=== PATIENT | female | born 1980 | race American Indian/Alaskan Native ===

== ENCOUNTER 2017-10-10 08:07 | Emergency (ER) | payer SELFPAY ==
[2017-10-10 08:33] VITALS: BP 149/89
[2017-10-10 09:03] LABS: Basophils % (Auto) 0.7 % (0.0-1.8); Eosinophils # (Auto) 0.2 K/mm3 (0.0-0.4); Eosinophils % (Auto) 2.5 % (0.0-4.3); Hemoglobin 7.7 gm/dl (10.1-14.3); Lymphocytes # (Auto) 2.1 K/mm3 (1.2-5.4); Lymphocytes % (Auto) 28.1 % (13.4-35.0); Mean Corpuscular HGB Conc 31 % (30-34); Monocytes # (Auto) 0.7 K/mm3 (0.0-0.8); Monocytes % (Auto) 9.4 % (0.0-7.3); Platelet Count 324 K/mm3 (140-440); Red Blood Count 4.72 M/mm3 (3.65-5.03)
[2017-10-10 09:06] LABS: Mean Corpuscular Hemoglobin 16 pg (28-32); Mean Corpuscular Volume 53 fl (79-97); Red Cell Distribution Width 22.7 % (13.2-15.2)
[2017-10-10 09:12] LABS: Bilirubin,Urine NEG (Negative); Blood,Urine NEG (Negative); Color,Urine Yellow (Yellow); HCG Qualitative,Urine Negative (Negative); Mucus,Urine FEW /HPF; Protein,Urine <15 mg/dL mg/dL (Negative); Urobilinogen,Urine < 2.0 mg/dL (<2.0)
[2017-10-10 09:42] LABS: Alanine Aminotransferase 23 units/L (7-56); Albumin 3.7 g/dL (3.9-5); BUN/Creatinine Ratio 7; Blood Urea Nitrogen 6 mg/dL (7-17); Calcium 6.7 mg/dL (8.4-10.2); Hemolysis Index 0; Lipase 22 units/L (13-60)
--- NOTE | 2017-10-10 10:47 | Emergency Department Report ---
Vomiting/Diarrhea - HPI Chief Complaint: Nausea/Vomiting/Diarrhea Stated Complaint: STOMACH VIRUS Time Seen by Provider: 10/10/17 10:10 Duration: 1 Day Severity: mild Nausea/Vomiting Severity: None Diarrhea Severity: Mild Pain Location: Generalized Pain Severity: None Symptoms: Yes Watery Diarrhea, Yes Able to Tolerate Fluids, Yes Family w/ Similar Symptoms, No Bloody diarrhea, No Fever, No Recent Untreated Water, No Recent use of Antibiotics, No Contacts w/ Similar Symptoms, No Rash, No Hematuria, No Recent URI Symptoms Other History: 37-year-old female with no prior medical history presents to ED complaining of watery loose stools since Monday night. Patient states that her daughter had a sleepover with children from her school and one of the children' s was sick. Patient states that her child and 2 other children had similar symptoms vomiting and diarrhea. She states that her symptoms began last night and mostly diarrhea. She denies nausea or vomiting. She states she's been inhibited changed to Gatorade and water but not as much food ED Review of Systems ROS: Stated complaint: STOMACH VIRUS Other details as noted in HPI Constitutional: denies: chills, fever Eyes: denies: eye pain, eye discharge, vision change ENT: denies: ear pain, throat pain Respiratory: denies: cough, shortness of breath, wheezing Cardiovascular: denies: chest pain, palpitations Endocrine: no symptoms reported Gastrointestinal: denies: abdominal pain, nausea, diarrhea Genitourinary: denies: urgency, dysuria, discharge Musculoskeletal: denies: back pain, joint swelling, arthralgia Skin: denies: rash, lesions Neurological: denies: headache, weakness, paresthesias Psychiatric: denies: anxiety, depression Hematological/Lymphatic: denies: easy bleeding, easy bruising ED Past Medical Hx - Past Medical History Previous Medical History?: Yes Additional medical history: VAGINAL DELIVERY X 2 - Surgical History Past Surgical History?: Yes Additional Surgical History: X 1 - Social History Smoking Status: Current Every Day Smoker Substance Use Type: Alcohol - Medications Home Medications: Home Medications Medication Instructions Recorded Confirmed Last Taken Type Acetaminophen/Diphenhydramine 1 each PO TID #30 tablet 10/10/17 Unknown Rx [Tylenol Pm Ex-Strength Caplet] Famotidine [Pepcid] 20 mg PO BID #20 tablet 05/22/18 Unknown Rx Vomiting Diarrhea Exam - Exam General: Vital signs noted. No distress. Alert and acting appropriately. HEENT: Yes Moist Mucous Membranes, No Pharyngeal Erythema, No Pharyngeal Exudates, No Rhinorrhea, No Conjuctival Injection, No Frontal Tenderness, No Maxillary Tenderness Neck: No Adenopathy, No Rigidity Lungs: Yes Clear Lung Sounds, Yes Good Air Exchange, No Wheezes, No Stridor, No Cough, No Nasal Flaring, No Retractions, No Use of Accessory Muscles Heart exam: Regular: Yes, Murmur: No, Tachycardia: No Abdomen: Tenderness: No, Peritoneal Signs: No, Distention: No, Hyperactive Bowel sounds: No Skin exam: Rash: No, Edema: No, Normal turgor: Yes Neurologic: Alert and oriented, no deficits. Musculoskeletal: Unremarkable. ED Course Vital Signs 10/10/17 08:28 Temperature 98.6 F Pulse Rate 104 H Respiratory 20 Rate Blood Pressure 149/89 O2 Sat by Pulse 100 Oximetry ED Medical Decision Making - Lab Data Result diagrams: 10/10/17 08:49 10/10/17 08:49 Laboratory Last Values WBC 7.5 K/mm3 (4.5-11.0) 10/10/17 08:49 RBC 4.72 M/mm3 (3.65-5.03) 10/10/17 08:49 Hgb 7.7 gm/dl (10.1-14.3) L 10/10/17 08:49 Hct 25.0 % (30.3-42.9) L 10/10/17 08:49 MCV 53 fl (79-97) L 10/10/17 08:49 MCH 16 pg (28-32) L 10/10/17 08:49 MCHC 31 % (30-34) 10/10/17 08:49 RDW 22.7 % (13.2-15.2) H 10/10/17 08:49 Plt Count 324 K/mm3 (140-440) 10/10/17 08:49 Lymph % (Auto) 28.1 % (13.4-35.0) 10/10/17 08:49 [place] % (Auto) 9.4 % (0.0-7.3) H 10/10/17 08:49 Eos % (Auto) 2.5 % (0.0-4.3) 10/10/17 08:49 Baso % (Auto) 0.7 % (0.0-1.8) 10/10/17 08:49 Lymph # 2.1 K/mm3 (1.2-5.4) 10/10/17 08:49 [place] # 0.7 K/mm3 (0.0-0.8) 10/10/17 08:49 Eos # 0.2 K/mm3 (0.0-0.4) 10/10/17 08:49 Baso # 0.0 K/mm3 (0.0-0.1) 10/10/17 08:49 Seg Neutrophils % 59.3 % (40.0-70.0) 10/10/17 08:49 Seg Neutrophils # 4.4 K/mm3 (1.8-7.7) 10/10/17 08:49 Sodium 135 mmol/L (137-145) L 10/10/17 08:49 Potassium 3.8 mmol/L (3.6-5.0) 10/10/17 08:49 Chloride 101.6 mmol/L (98-107) 10/10/17 08:49 Carbon Dioxide 24 mmol/L (22-30) 10/10/17 08:49 Anion Gap 13 mmol/L 10/10/17 08:49 BUN 6 mg/dL (7-17) L 10/10/17 08:49 Creatinine 0.9 mg/dL (0.7-1.2) 10/10/17 08:49 Estimated GFR > 60 ml/min 10/10/17 08:49 BUN/Creatinine Ratio 7 % 10/10/17 08:49 Glucose 124 mg/dL (65-100) H 10/10/17 08:49 Calcium 6.7 mg/dL (8.4-10.2) L 10/10/17 08:49 Total Bilirubin 0.30 mg/dL (0.1-1.2) 10/10/17 08:49 AST 26 units/L (5-40) 10/10/17 08:49 ALT 23 units/L (7-56) 10/10/17 08:49 Alkaline Phosphatase 86 units/L (35-129) 10/10/17 08:49 Total Protein 7.1 g/dL (6.3-8.2) 10/10/17 08:49 Albumin 3.7 g/dL (3.9-5) L 10/10/17 08:49 Albumin/Globulin Ratio 1.1 % 10/10/17 08:49 Lipase 22 units/L (13-60) 10/10/17 08:49 Urine Color Yellow (Yellow) 10/10/17 08:41 Urine Turbidity Clear (Clear) 10/10/17 08:41 Urine pH 5.0 (5.0-7.0) 10/10/17 08:41 Ur Specific [place] 1.012 (1.003-1.030) 10/10/17 08:41 Urine Protein <15 mg/dl mg/dL (Negative) 10/10/17 08:41 Urine Glucose (UA) Neg mg/dL (Negative) 10/10/17 08:41 Urine Ketones Neg mg/dL (Negative) 10/10/17 08:41 Urine Blood Neg (Negative) 10/10/17 08:41 Urine Nitrite Neg (Negative) 10/10/17 08:41 Ur Reducing Substances Not Reportable 10/10/17 08:41 Urine Bilirubin Neg (Negative) 10/10/17 08:41 Urine Ictotest Not Reportable 10/10/17 08:41 Urine Urobilinogen < 2.0 mg/dL (<2.0) 10/10/17 08:41 Ur Leukocyte Esterase Tr (Negative) 10/10/17 08:41 Urine WBC (Auto) 5.0 /HPF (0.0-6.0) 10/10/17 08:41 Urine RBC (Auto) 4.0 /HPF (0.0-6.0) 10/10/17 08:41 U Epithel Cells (Auto) 10.0 /HPF (0-13.0) 10/10/17 08:41 Urine Mucus Few /HPF 10/10/17 08:41 Urine HCG, Qual Negative (Negative) 10/10/17 08:41 - Medical Decision Making 37-year-old female presents with a mild gastroenteritis ED course: CBC, CMP, urine test, urinalysis all completed Labs within normal limits, mild anemic I discussed his findings with the patient. I discussed with the patient to bowel rest for a couple of days I discussed the patient drink plenty plenty of fluids, Gatorade, water and then bland diet I discussed to take Tylenol as needed for generalized abdominal pain Patient had no episodes of vomiting or diarrhea in the ED I discussed follow-up with primary care physician. Vital signs are normal patient is in no acute or respiratory distress Critical care attestation.: If time is entered above; I have spent that time in minutes in the direct care of this critically ill patient, excluding procedure time. ED Disposition Clinical Impression: Gastroenteritis Diarrhea Qualifiers: Diarrhea type: unspecified type Qualified Code(s): R19.7 - Diarrhea, unspecified Disposition: TO HOME OR SELFCARE Is pt being admited?: No Does the pt Need Aspirin: No Condition: Stable Instructions: Traveler's Diarrhea (ED), Soft Diet (ED), Gastroenteritis (ED), Food Poisoning (ED) Additional Instructions: Make sure to follow up with the primary care physician as discussed. Take all your medications as you've been prescribed. If you have any worsening symptoms or develop new symptoms please return to ED immediately. Prescriptions: Acetaminophen/Diphenhydramine [Tylenol Pm Ex-Strength Caplet] 1 each PO TID #30 tablet Famotidine [Pepcid] 20 mg PO BID #20 tablet Referrals: PRIMARY CARE, [Primary Care Provider] - 3-5 Days [facility] [Outside] - 3-5 Days [facility] [Outside] - 3-5 Days [facility] [Outside] - 3-5 Days Forms: Work/School Release Form(ED) Time of Disposition: 10:50
== END 2017-10-10 10:58 | disposition home or self-care (01) ==
LOC: ED 08:07
DX: K52.9 Noninfective gastroenteritis and colitis, unspecified (principal); F17.200 Nicotine dependence, unspecified, uncomplicated
CPT/HCPCS: 36415; 80053; 81001; 81025; 83690; 85025; 99283

== ENCOUNTER 2019-03-19 19:31 | Emergency (ER) | payer SELFPAY ==
--- NOTE | 2019-03-19 20:45 | Emergency Department Report ---
Blank Doc - Documentation Documentation: 38-year-old female that presents with chest pain, body aches, SOB, and increased urination and frequency. This initial assessment/diagnostic orders/clinical plan/treatment(s) is/are subject to change based on patient's health status, clinical progression and re- assessment by fellow clinical providers in the ED. Further treatment and workup at subsequent clinical providers discretion. Patient/guardians urged not to elope from the ED as their condition may be serious if not clinically assessed and managed. Initial orders include: 1- Patient sent to MAIN for further evaluation and treatment 2- labs 3- EKG 4- CXR
[2019-03-19 21:08] LABS: Basophils # (Auto) 0.3 K/mm3 (0.0-0.1); Basophils % (Auto) 2.7 % (0.0-1.8); Eosinophils # (Auto) 0.2 K/mm3 (0.0-0.4); Eosinophils % (Auto) 1.5 % (0.0-4.3); Lymphocytes # (Auto) 2.8 K/mm3 (1.2-5.4); Lymphocytes % (Auto) 26.6 % (13.4-35.0); Mean Corpuscular HGB Conc 26 % (30-34); Monocytes # (Auto) 0.7 K/mm3 (0.0-0.8); Monocytes % (Auto) 6.3 % (0.0-7.3); Red Blood Count 5.51 M/mm3 (3.65-5.03)
[2019-03-19 21:09] LABS: Hematocrit 29.2 % (30.3-42.9); Hemoglobin 7.6 gm/dl (10.1-14.3); Mean Corpuscular Volume 53 fl (79-97); Platelet Count 296 K/mm3 (140-440); Red Cell Distribution Width 22.9 % (13.2-15.2)
[2019-03-19 21:21] LABS: INR 1.13 (0.87-1.13)
[2019-03-19 21:32] LABS: Alanine Aminotransferase 21 units/L (7-56); Albumin 4.2 g/dL (3.9-5); BUN/Creatinine Ratio 14; Blood Urea Nitrogen 13 mg/dL (7-17); Calcium 9.1 mg/dL (8.4-10.2); Hemolysis Index 6
[2019-03-19] MEDS ORDERED: INSULIN REGULAR, HUMAN 100 UNITS/1 ML IV ONE (21:57)
[2019-03-19] MEDS ORDERED: SODIUM CHLORIDE 0.9% 1000 ML 1,000 ML IV ONE ×3 (21:57→23:21)
--- NOTE | 2019-03-19 22:05 | Emergency Department Report ---
- General Chief complaint: Chest Pain Stated complaint: BLURRY VISION CX PAIN AMES Time Seen by Provider: 03/19/19 20:43 Source: patient Mode of arrival: Ambulatory Limitations: No Limitations - History of Present Illness Initial comments: 38-year-old female presents to the hospital complaining of polyuria, increased thirst, generalized fatigue, blurred vision, and chest chest pain 3 days. Chest pain is in the sternal area, sharp, reproducible movement, cough, and palpation. Also increased pain with deep inspiration. Patient shortness of breath, nausea, vomiting, diarrhea, or abdominal pain. Patient complains of generalized headache and some mild blurred vision. Glucose here is high on Accu-Chek and patient denies a known a past medical history diabetes but does have a family history. Positive history of iron deficiency anemia. Patient is noncompliant with iron tablets. Denies melena hematochezia or hematemesis. - Related Data Previous Rx's Medication Instructions Recorded Last Taken Type Acetaminophen/Diphenhydramine 1 each PO TID #30 tablet 10/10/17 Unknown Rx [Tylenol Pm Ex-Strength Caplet] Famotidine [Pepcid] 20 mg PO BID #20 tablet 10/10/17 Unknown Rx Ferrous Sulfate [Ferrous Sulfate 324 mg PO DAILY #30 tablet. 03/20/19 Unknown Rx 324 MG] metFORMIN [Glucophage] 500 mg PO BID #60 tablet 03/20/19 Unknown Rx Allergies Allergy/AdvReac Type Severity Reaction Status Date / Time No Known Allergies Allergy Verified 03/19/19 19:37 ED Review of Systems ROS: Stated complaint: BLURRY VISION CX PAIN AMES Other details as noted in HPI Comment: All other systems reviewed and negative ED Past Medical Hx - Past Medical History Additional medical history: VAGINAL DELIVERY X 2 - Surgical History Additional Surgical History: X 1 - Social History Smoking Status: Current Every Day Smoker Substance Use Type: Alcohol - Medications Home Medications: Home Medications Medication Instructions Recorded Confirmed Last Taken Type Acetaminophen/Diphenhydramine 1 each PO TID #30 tablet 10/10/17 Unknown Rx [Tylenol Pm Ex-Strength Caplet] Famotidine [Pepcid] 20 mg PO BID #20 tablet 10/10/17 Unknown Rx Ferrous Sulfate [Ferrous Sulfate 324 mg PO DAILY #30 tablet. 03/20/19 Unknown Rx 324 MG] metFORMIN [Glucophage] 500 mg PO BID #60 tablet 03/20/19 Unknown Rx ED Physical Exam - General Limitations: No Limitations - Other Other exam information: General: No acute distress Head: Atraumatic Eyes: normal appearance ENT: Dry mucous membranes Neck: Normal appearance, no midline tenderness Chest: Clear to auscultation bilaterally CV: Tachycardic regular rhythm Abdomen: Soft, normal bowel sounds, nontender, nondistended, no rebound or guarding Back: Normal inspection Extremity: Normal inspection infection, full range of motion, no calf tenderness or leg edema Neuro: Alert O x 3, no facial asymmetry, speech clear, no gross motor sensory deficit Psych: Appropriate behavior Skin: No rash ED Course Vital Signs 03/19/19 03/19/19 03/20/19 19:40 20:34 02:02 Temperature 98.5 F 98.5 F 99 F Pulse Rate 118 H 127 H 110 H Respiratory 18 22 18 Rate Blood Pressure 136/88 136/88 Blood Pressure 137/100 [Left] O2 Sat by Pulse 100 99 100 Oximetry - Reevaluation(s) Reevaluation #1: 03/20/19 04:10 Patient's glucose is gradually trending downwards with IV hydration, or hydration, and insulin. Glucoses in the 300s at this time. Patient offered admission but declines at this time. She states she is feeling better. I stressed the importance of follow-up for glucose management. We'll continue to hydrate and treat with goal glucose in the 200s prior to discharge. No signs of DKA. Patient prep for discharge and will be signed out to Dr. Alanis 03/20/19 04:15 Patient's heart rate is currently 93-94. ED Medical Decision Making - Lab Data Result diagrams: 03/19/19 20:56 03/19/19 20:56 Lab Results 03/19/19 03/19/19 03/19/19 Range/Units 20:51 20:56 20:56 WBC 10.7 (4.5-11.0) K/mm3 RBC 5.51 H (3.65-5.03) M/mm3 Hgb 7.6 L (10.1-14.3) gm/dl Hct 29.2 L (30.3-42.9) % MCV 53 L (79-97) fl MCH 14 L (28-32) pg MCHC 26 L (30-34) % RDW 22.9 H (13.2-15.2) % Plt Count 296 (140-440) K/mm3 Lymph % (Auto) 26.6 (13.4-35.0) % [place] % (Auto) 6.3 (0.0-7.3) % Eos % (Auto) 1.5 (0.0-4.3) % Baso % (Auto) 2.7 H (0.0-1.8) % Lymph # 2.8 (1.2-5.4) K/mm3 [place] # 0.7 (0.0-0.8) K/mm3 Eos # 0.2 (0.0-0.4) K/mm3 Baso # 0.3 H (0.0-0.1) K/mm3 Seg Neutrophils % 62.9 (40.0-70.0) % Seg Neutrophils # 6.7 (1.8-7.7) K/mm3 PT 14.4 (12.2-14.9) Sec. INR 1.13 (0.87-1.13) APTT 25.0 (24.2-36.6) Sec. VBG pH (7.320-7.420) Sodium (137-145) mmol/L Potassium (3.6-5.0) mmol/L Chloride (98-107) mmol/L Carbon Dioxide (22-30) mmol/L Anion Gap mmol/L BUN (7-17) mg/dL Creatinine (0.7-1.2) mg/dL Estimated GFR ml/min BUN/Creatinine Ratio % Glucose (65-100) mg/dL POC Glucose > 500 H (70-105) Calcium (8.4-10.2) mg/dL Iron (37-170) ug/dL TIBC (250-450) mcg/dL Total Bilirubin (0.1-1.2) mg/dL AST (5-40) units/L ALT (7-56) units/L Alkaline Phosphatase (35-129) units/L Troponin T (0.00-0.029) ng/mL Total Protein (6.3-8.2) g/dL Albumin (3.9-5) g/dL Albumin/Globulin Ratio % HCG, Qual (Negative) Urine Color (Yellow) Urine Turbidity (Clear) Urine pH (5.0-7.0) Ur Specific [place] (1.003-1.030) Urine Protein (Negative) mg/dL Urine Glucose (UA) (Negative) mg/dL Urine Ketones (Negative) mg/dL Urine Blood (Negative) Urine Nitrite (Negative) Urine Bilirubin (Negative) Urine Urobilinogen (<2.0) mg/dL Ur Leukocyte Esterase (Negative) Urine WBC (Auto) (0.0-6.0) /HPF Urine RBC (Auto) (0.0-6.0) /HPF U Epithel Cells (Auto) (0-13.0) /HPF Urine Bacteria (Auto) (Negative) /HPF Urine Mucus /HPF 03/19/19 03/19/19 03/19/19 Range/Units 20:56 20:56 20:56 WBC (4.5-11.0) K/mm3 RBC (3.65-5.03) M/mm3 Hgb (10.1-14.3) gm/dl Hct (30.3-42.9) % MCV (79-97) fl MCH (28-32) pg MCHC (30-34) % RDW (13.2-15.2) % Plt Count (140-440) K/mm3 Lymph % (Auto) (13.4-35.0) % [place] % (Auto) (0.0-7.3) % Eos % (Auto) (0.0-4.3) % Baso % (Auto) (0.0-1.8) % Lymph # (1.2-5.4) K/mm3 [place] # (0.0-0.8) K/mm3 Eos # (0.0-0.4) K/mm3 Baso # (0.0-0.1) K/mm3 Seg Neutrophils % (40.0-70.0) % Seg Neutrophils # (1.8-7.7) K/mm3 PT (12.2-14.9) Sec. INR (0.87-1.13) APTT (24.2-36.6) Sec. VBG pH 7.376 (7.320-7.420) Sodium 126 L (137-145) mmol/L Potassium 5.1 H (3.6-5.0) mmol/L Chloride 87.2 L (98-107) mmol/L Carbon Dioxide 19 L (22-30) mmol/L Anion Gap 25 mmol/L BUN 13 (7-17) mg/dL Creatinine 0.9 (0.7-1.2) mg/dL Estimated GFR > 60 ml/min BUN/Creatinine Ratio 14 % Glucose 786 H* (65-100) mg/dL POC Glucose (70-105) Calcium 9.1 (8.4-10.2) mg/dL Iron (37-170) ug/dL TIBC (250-450) mcg/dL Total Bilirubin 0.40 (0.1-1.2) mg/dL AST 25 (5-40) units/L ALT 21 (7-56) units/L Alkaline Phosphatase 142 H (35-129) units/L Troponin T < 0.010 (0.00-0.029) ng/mL Total Protein 7.8 (6.3-8.2) g/dL Albumin 4.2 (3.9-5) g/dL Albumin/Globulin Ratio 1.2 % HCG, Qual Negative (Negative) Urine Color (Yellow) Urine Turbidity (Clear) Urine pH (5.0-7.0) Ur Specific [place] (1.003-1.030) Urine Protein (Negative) mg/dL Urine Glucose (UA) (Negative) mg/dL Urine Ketones (Negative) mg/dL Urine Blood (Negative) Urine Nitrite (Negative) Urine Bilirubin (Negative) Urine Urobilinogen (<2.0) mg/dL Ur Leukocyte Esterase (Negative) Urine WBC (Auto) (0.0-6.0) /HPF Urine RBC (Auto) (0.0-6.0) /HPF U Epithel Cells (Auto) (0-13.0) /HPF Urine Bacteria (Auto) (Negative) /HPF Urine Mucus /HPF 03/19/19 03/19/19 03/19/19 Range/Units 20:56 21:53 23:20 WBC (4.5-11.0) K/mm3 RBC (3.65-5.03) M/mm3 Hgb (10.1-14.3) gm/dl Hct (30.3-42.9) % MCV (79-97) fl MCH (28-32) pg MCHC (30-34) % RDW (13.2-15.2) % Plt Count (140-440) K/mm3 Lymph % (Auto) (13.4-35.0) % [place] % (Auto) (0.0-7.3) % Eos % (Auto) (0.0-4.3) % Baso % (Auto) (0.0-1.8) % Lymph # (1.2-5.4) K/mm3 [place] # (0.0-0.8) K/mm3 Eos # (0.0-0.4) K/mm3 Baso # (0.0-0.1) K/mm3 Seg Neutrophils % (40.0-70.0) % Seg Neutrophils # (1.8-7.7) K/mm3 PT (12.2-14.9) Sec. INR (0.87-1.13) APTT (24.2-36.6) Sec. VBG pH (7.320-7.420) Sodium (137-145) mmol/L Potassium (3.6-5.0) mmol/L Chloride (98-107) mmol/L Carbon Dioxide (22-30) mmol/L Anion Gap mmol/L BUN (7-17) mg/dL Creatinine (0.7-1.2) mg/dL Estimated GFR ml/min BUN/Creatinine Ratio % Glucose (65-100) mg/dL POC Glucose (70-105) Calcium (8.4-10.2) mg/dL Iron 15 L (37-170) ug/dL TIBC 430 (250-450) mcg/dL Total Bilirubin (0.1-1.2) mg/dL AST (5-40) units/L ALT (7-56) units/L Alkaline Phosphatase (35-129) units/L Troponin T < 0.010 (0.00-0.029) ng/mL Total Protein (6.3-8.2) g/dL Albumin (3.9-5) g/dL Albumin/Globulin Ratio % HCG, Qual (Negative) Urine Color [place] (Yellow) Urine Turbidity Clear (Clear) Urine pH 6.0 (5.0-7.0) Ur Specific [place] 1.024 (1.003-1.030) Urine Protein <15 mg/dl (Negative) mg/dL Urine Glucose (UA) >=500 (Negative) mg/dL Urine Ketones Neg (Negative) mg/dL Urine Blood Neg (Negative) Urine Nitrite Neg (Negative) Urine Bilirubin Neg (Negative) Urine Urobilinogen < 2.0 (<2.0) mg/dL Ur Leukocyte Esterase Neg (Negative) Urine WBC (Auto) < 1.0 (0.0-6.0) /HPF Urine RBC (Auto) 1.0 (0.0-6.0) /HPF U Epithel Cells (Auto) < 1.0 (0-13.0) /HPF Urine Bacteria (Auto) 1+ (Negative) /HPF Urine Mucus Few /HPF 03/20/19 03/20/19 03/20/19 Range/Units 00:33 01:58 03:12 WBC (4.5-11.0) K/mm3 RBC (3.65-5.03) M/mm3 Hgb (10.1-14.3) gm/dl Hct (30.3-42.9) % MCV (79-97) fl MCH (28-32) pg MCHC (30-34) % RDW (13.2-15.2) % Plt Count (140-440) K/mm3 Lymph % (Auto) (13.4-35.0) % [place] % (Auto) (0.0-7.3) % Eos % (Auto) (0.0-4.3) % Baso % (Auto) (0.0-1.8) % Lymph # (1.2-5.4) K/mm3 [place] # (0.0-0.8) K/mm3 Eos # (0.0-0.4) K/mm3 Baso # (0.0-0.1) K/mm3 Seg Neutrophils % (40.0-70.0) % Seg Neutrophils # (1.8-7.7) K/mm3 PT (12.2-14.9) Sec. INR (0.87-1.13) APTT (24.2-36.6) Sec. VBG pH (7.320-7.420) Sodium (137-145) mmol/L Potassium (3.6-5.0) mmol/L Chloride (98-107) mmol/L Carbon Dioxide (22-30) mmol/L Anion Gap mmol/L BUN (7-17) mg/dL Creatinine (0.7-1.2) mg/dL Estimated GFR ml/min BUN/Creatinine Ratio % Glucose (65-100) mg/dL POC Glucose 469 H 411 H 389 H (70-105) Calcium (8.4-10.2) mg/dL Iron (37-170) ug/dL TIBC (250-450) mcg/dL Total Bilirubin (0.1-1.2) mg/dL AST (5-40) units/L ALT (7-56) units/L Alkaline Phosphatase (35-129) units/L Troponin T (0.00-0.029) ng/mL Total Protein (6.3-8.2) g/dL Albumin (3.9-5) g/dL Albumin/Globulin Ratio % HCG, Qual (Negative) Urine Color (Yellow) Urine Turbidity (Clear) Urine pH (5.0-7.0) Ur Specific [place] (1.003-1.030) Urine Protein (Negative) mg/dL Urine Glucose (UA) (Negative) mg/dL Urine Ketones (Negative) mg/dL Urine Blood (Negative) Urine Nitrite (Negative) Urine Bilirubin (Negative) Urine Urobilinogen (<2.0) mg/dL Ur Leukocyte Esterase (Negative) Urine WBC (Auto) (0.0-6.0) /HPF Urine RBC (Auto) (0.0-6.0) /HPF U Epithel Cells (Auto) (0-13.0) /HPF Urine Bacteria (Auto) (Negative) /HPF Urine Mucus /HPF - EKG Data -: EKG Interpreted by [facility] EKG shows normal: sinus rhythm, ST-T waves (no stemi/lvh) Rate: tachycardia (114) - Radiology Data Radiology results: report reviewed cxr: naf - Differential Diagnosis DKA, hyperglycemia, dehydration Critical Care Time: No Critical care attestation.: If time is entered above; I have spent that time in minutes in the direct care of this critically ill patient, excluding procedure time. ED Disposition Clinical Impression: Diabetes mellitus, new onset, Hyperglycemia, Iron deficiency anemia Disposition: - TO HOME OR SELFCARE Is pt being admited?: No Does the pt Need Aspirin: No Condition: Stable Instructions: Diabetes Mellitus Type 2 in Adults (ED), Iron Deficiency Anemia (ED) Additional Instructions: Take the medication as prescribed. Follow-up with your doctor or doctor/clinic provided. Return if symptoms worsen as indicated by your discharge instructions. Prescriptions: Ferrous Sulfate [Ferrous Sulfate 324 MG] 324 mg PO DAILY #30 tablet. metFORMIN [Glucophage] 500 mg PO BID #60 tablet Referrals: PRIMARY CAREMD [Primary Care Provider] - 3-5 Days [facility] [Provider Group] - 3-5 Days ANDREAS VALENTINO MD [Staff Physician] - 3-5 Days
[2019-03-19 22:19] LABS: Bacteria,Urine 1+ /HPF (Negative); Bilirubin,Urine NEG (Negative); Blood,Urine NEG (Negative); Color,Urine Straw (Yellow); Mucus,Urine FEW /HPF; Protein,Urine <15 mg/dL mg/dL (Negative); Urobilinogen,Urine < 2.0 mg/dL (<2.0); WBC,Urine < 1.0 /HPF (0.0-6.0)
[2019-03-19 22:27] LABS: Iron 15 ug/dL (37-170); Total Iron Binding Capacity 430 mcg/dL (250-450)
--- NOTE | 2019-03-19 23:16 | XRay Report ---
CHEST 2 VIEWS INDICATION / CLINICAL INFORMATION: Chest Pain. COMPARISON: None available. FINDINGS: SUPPORT DEVICES: None. HEART / MEDIASTINUM: No significant abnormality. LUNGS / PLEURA: No significant pulmonary or pleural abnormality. No pneumothorax. ADDITIONAL FINDINGS: No significant additional findings. IMPRESSION: No acute abnormality of the chest. Signer Name: Garrett Teran MD Signed: 03/19/2019 11:12 PM Workstation Name: [id number]
[2019-03-20] MEDS ORDERED: INSULIN REGULAR, HUMAN 100 UNITS/1 ML IV ONE ×4 (01:40→05:16)
[2019-03-20] MEDS ORDERED: SODIUM CHLORIDE 0.9% 1000 ML 1,000 ML IV ONE ×2 (02:20→05:16)
[2019-03-20 07:33] VITALS: BP 134/78
== END 2019-03-20 06:10 | disposition home or self-care (01) ==
LOC: ED 19:31
DX: E11.65 Type 2 diabetes mellitus with hyperglycemia (principal); D50.9 Iron deficiency anemia, unspecified; F17.200 Nicotine dependence, unspecified, uncomplicated; Z79.899 Other long term (current) drug therapy
CPT/HCPCS: 36415; 71046; 80053; 81001; 82805; 82962; 83550; 84484; 84703; 85025; 85610; 85730; 93005; 93010; 96361; 96374; 96376; 99285; J7030; J1815